=== PATIENT | female | born 1995 | race African-American/Black ===

== ENCOUNTER 2018-09-15 18:18 | Emergency (ER) | payer OTHER ==
[2018-09-15 20:19] LABS: Urine Appearance Clear; Urine Bilirubin Negative (Negative); Urine Blood Negative (Negative); Urine Color Straw; Urine Glucose Negative (Negative); Urine Ketones Negative (Negative); Urine Nitrite Negative (Negative); Urine Protein Negative (Negative); Urine Specific Gravity 1.003 (1.010-1.030); Urine Urobilinogen Negative (Negative)
[2018-09-15 20:22] LABS: ABS Basophils 0.1 10^3/ul (0-0.2); ABS Eosinophils 0.1 10^3/ul (0-0.6); ABS Lymphocytes 2.9 10^3/ul (1.0-4.8); ABS Monocytes 0.4 10^3/ul (0-0.8); ABS Neutrophils 2.2 10^3/ul (1.5-7.7); Eosinophil % 2.4 %; Hematocrit 42 % (35-47); Hemoglobin 14.3 g/dL (12.0-16.0); Mean Corpuscular HGB Conc 34 g/dL (31-36); Mean Corpuscular Hemoglobin 31 pg (27-31); Mean Corpuscular Volume 91 fL (80-97); Mean Platelet Volume 7.6 fL (7.4-10.4); Nucleated Red Blood Cells % 0.2; Platelet Count 252 10^3/uL (150-450); Red Blood Count 4.65 10^6 /uL (3.70-4.87); Red Cell Distribution Width 13 % (10-15); White Blood Count 5.7 10^3/uL (3.5-10.8)
[2018-09-15 20:48] LABS: HCG Pregnancy < 0.60 mIU/mL
[2018-09-15 20:54] LABS: ALT 26 U/L (7-52); AST 39 U/L (13-39); Albumin 4.2 g/dL (3.2-5.2); Albumin/Globulin Ratio 1.3 (1-3); Alkaline Phosphatase 44 U/L (34-104); Anion Gap 5 mmol/L (2-11); BUN/Creatinine Ratio 11.4 (8-20); Blood Urea Nitrogen 12 mg/dL (6-24); CO2 Carbon Dioxide 27 mmol/L (22-32); Calcium 9.3 mg/dL (8.6-10.3); Chloride 105 mmol/L (101-111); EGFR African American 79.3 (>60); EGFR Non-African American 65.5 (>60); Globulin 3.2 g/dL (2-4); Glucose 86 mg/dL (70-100); Potassium 4.1 mmol/L (3.5-5.0); Sodium 137 mmol/L (135-145); Total Protein 7.4 g/dL (6.4-8.9)
--- NOTE | 2018-09-15 21:33 | ED ---
GI/ HPI - HPI Summary HPI Summary: Patient is a 23 y/o F presenting to ED with complaints of nausea, diarrhea, and abdominal pain. She states that she has been experiencing diarrhea for the past three weeks. She reports experiencing similar GIGU issues when she was younger, which she attributes to a virus. In the past week, patient has begun to experience abdominal pain with eating. In the room, she notes some nausea and fatigue. Patient notes decreased appetite due to pain she experiences as a result of eating. PMHx is denied, patient is on control, LNMP was a week ago and is described as normal. She notes Hx of hernia but otherwise denies abdominal surgery. No pets, no recent camping. She states that she eats eggs and oatmeal in the morning, which causes diarrhea. On triage, pain is denied. Home medications and allergies are reviewed. - History of Current Complaint Chief Complaint: EDNauseaVomitDiarrh Time Seen by Provider: 09/15/18 21:25 Stated Complaint: ABD PAIN PER PT Hx Obtained From: Patient Onset/Duration: Started Weeks Ago, Still Present Timing: Constant, Lasting Weeks Current Severity: None - on triage, pain denied Pain Intensity: 0 Associated Signs and Symptoms: Positive: Nausea, Diarrhea, Change in Appetite - decreased, Abdominal Pain, Other: - fatigue Aggravating Factor(s): Nothing Alleviating Factor(s): Nothing - Allergy/Home Medications Allergies/Adverse Reactions: Allergies Allergy/AdvReac Type Severity Reaction Status Date / Time No Known Allergies Allergy Verified 09/15/18 20:55 PMH/Surg Hx/FS Hx/Imm Hx Sensory History: Denies: Hx Legally Blind, Hx Deafness Opthamlomology History: Denies: Hx Legally Blind EENT History: Denies: Hx Deafness Infectious Disease History: No Infectious Disease History: Denies: Traveled Outside the [place] in Last 30 Days - Family History Known Family History: Negative: Respiratory Disease - Social History Alcohol Use: Occasionally Substance Use Type: Reports: None Smoking Status (MU): Never Smoked Tobacco Review of Systems Positive: Fatigue Gastrointestinal: Other - positive - decreased appetite Positive: Abdominal Pain, Diarrhea, Nausea All Other Systems Reviewed And Are Negative: Yes Physical Exam - Summary Physical Exam Summary: Appearance: Well-appearing, Well-nourished, lying in bed comfortably Skin: Warm, dry, no obvious rash Eyes: sclera anicteric, no conjunctival pallor ENT: mucous membranes moist, pharynx appears normal Neck: Supple, nontender Respiratory: Clear to auscultation, no signs of respiratory distress Cardiovascular: Normal S1, S2. No murmurs. Normal distal pulses in tibial and radial bilaterally. Abdomen: Soft, nontender, normal active bowel sounds present Musculoskeletal: Normal, Strength/ROM Intact Neurological: A&Ox3, awake and alert, mentation is normal, speech is fluent and appropriate Psychiatric: affect is normal, does not appear anxious or depressed Triage Information Reviewed: Yes Vital Signs On Initial Exam: Initial Vitals Temp Pulse Resp BP Pulse Ox 99.1 F 68 16 133/72 100 09/15/18 18:22 09/15/18 18:22 09/15/18 18:22 09/15/18 18:22 09/15/18 18:22 Vital Signs Reviewed: Yes Diagnostics - Vital Signs Vital Signs Temp Pulse Resp BP Pulse Ox 09/15/18 20:54 98.9 F 58 18 126/73 100 09/15/18 18:22 99.1 F 68 16 133/72 100 - Laboratory Lab Results: Lab Results 09/15/18 09/15/18 09/15/18 Range/Units 20:10 20:10 20:11 WBC 5.7 (3.5-10.8) 10^3/uL RBC 4.65 (3.70-4.87) 10^6 /uL Hgb 14.3 (12.0-16.0) g/dL Hct 42 (35-47) % MCV 91 (80-97) fL MCH 31 (27-31) pg MCHC 34 (31-36) g/dL RDW 13 (10-15) % Plt Count 252 (150-450) 10^3/uL MPV 7.6 (7.4-10.4) fL Neut % (Auto) 38.3 % Lymph % (Auto) 51.0 % [place] % (Auto) 7.3 % Eos % (Auto) 2.4 % Baso % (Auto) 1.0 % Absolute Neuts (auto) 2.2 (1.5-7.7) 10^3/ul Absolute Lymphs (auto) 2.9 (1.0-4.8) 10^3/ul Absolute Monos (auto) 0.4 (0-0.8) 10^3/ul Absolute Eos (auto) 0.1 (0-0.6) 10^3/ul Absolute Basos (auto) 0.1 (0-0.2) 10^3/ul Absolute Nucleated RBC 0.0 10^3/ul Nucleated RBC % 0.2 Sodium 137 (135-145) mmol/L Potassium 4.1 (3.5-5.0) mmol/L Chloride 105 (101-111) mmol/L Carbon Dioxide 27 (22-32) mmol/L Anion Gap 5 (2-11) mmol/L BUN 12 (6-24) mg/dL Creatinine 1.05 H (0.51-0.95) mg/dL Est GFR ( Amer) 79.3 (>60) Est GFR (Non-Af Amer) 65.5 (>60) BUN/Creatinine Ratio 11.4 (8-20) Glucose 86 (70-100) mg/dL Calcium 9.3 (8.6-10.3) mg/dL Total Bilirubin 0.60 (0.2-1.0) mg/dL AST 39 (13-39) U/L ALT 26 (7-52) U/L Alkaline Phosphatase 44 (34-104) U/L Total Protein 7.4 (6.4-8.9) g/dL Albumin 4.2 (3.2-5.2) g/dL Globulin 3.2 (2-4) g/dL Albumin/Globulin Ratio 1.3 (1-3) Lipase 34 (11.0-82.0) U/L Beta HCG, Quant < 0.60 mIU/mL Urine Color Straw Urine Appearance Clear Urine pH 6.0 (5-9) Ur Specific [place] 1.003 L (1.010-1.030) Urine Protein Negative (Negative) Urine Ketones Negative (Negative) Urine Blood Negative (Negative) Urine Nitrate Negative (Negative) Urine Bilirubin Negative (Negative) Urine Urobilinogen Negative (Negative) Ur Leukocyte Esterase Negative (Negative) Urine Glucose Negative (Negative) Result Diagrams: 09/15/18 20:11 09/15/18 20:10 Lab Statement: Any lab studies that have been ordered have been reviewed, and results considered in the medical decision making process. GIGU Course/Dx - Course Course Of Treatment: Patient is a 23 y/o F presenting to ED with complaints of nausea, diarrhea, and abdominal pain. She states that she has been experiencing diarrhea for the past three weeks. She reports experiencing similar GIGU issues when she was younger, which she attributes to a virus. In the past week, patient has begun to experience abdominal pain with eating. In the room, she notes some nausea and fatigue. Patient notes decreased appetite due to pain she experiences as a result of eating. PMHx is denied, patient is on control, LNMP was a week ago and is described as normal. She notes Hx of hernia but otherwise denies abdominal surgery. No pets, no recent camping. She states that she eats eggs and oatmeal in the morning, which causes diarrhea. Physical exam is unremarkable. Labs showed creatinine of 1.05, lipase 34, bet HCG < 0.6. UA negative. Patient will be discharged to home with GI follow up. She is agreeable with this. - Diagnoses Provider Diagnoses: Abdominal pain, Diarrhea Discharge - Sign-Out/Discharge Documenting (check all that apply): Patient Departure - discharge Patient Received Moderate/Deep Sedation with Procedure: No - Discharge Plan Condition: Good Disposition: HOME Prescriptions: Ondansetron ODT TAB* [Zofran 4 MG Odt TAB*] 8 mg PO Q6H PRN #15 tab.odt PRN Reason: Nausea Patient Education Materials: Gas and Bloating (ED) Referrals: Zack Christian DO [Doctor of Osteopathy] - Additional Instructions: 3 weeks is longer than it would normally take a typical stomach virus to heal up , so there may be something else going on here. The routine tests we did tonight looking at your liver, kidneys, pancreas and blood components were unremarkable, so I think you would benefit from seeing a GI specialist. Contact Dr. Christian's office Tuesday to schedule an appt. In the meantime, I have prescribed some zofran to try for the nausea. You may also benefit from trying some OTC medications, in particular Zantac and simethicone might provide some help with the symptoms. - Billing Disposition and Condition Condition: GOOD Disposition: Home - Attestation Statements Document Initiated by Scribe: Yes Documenting Scribe: REENA WHARTON Provider For Whom Jovani is Documenting (Include Credential): LO ESPARZA MD Scribe Attestation: I, REENA WHARTON, scribed for LO ESPARZA MD on 09/19/18 at 0758. Scribe Documentation Reviewed: Yes Provider Attestation: The documentation as recorded by the scribeREENA accurately reflects the service I personally performed and the decisions made by me, LO ESPARZA MD Status of Scribe Document: Viewed
[2018-09-15 21:57] VITALS: BP 119/72
== END 2018-09-15 21:55 | disposition home or self-care (01) ==
LOC: ED 18:18
DX: R10.9 Unspecified abdominal pain (principal); R19.7 Diarrhea, unspecified; R53.83 Other fatigue; Z32.02 Encounter for pregnancy test, result negative
CPT/HCPCS: 36415; 80053; 81003; 83690; 84702; 85025; 99282